=== PATIENT | female | born 1935 | race Caucasian/White ===

== ENCOUNTER 2018-03-03 19:27 | Emergency (ER) | payer OTHER ==
[~2018-03-03] VITALS: Ht 160 cm; Wt 84.8 kg
[2018-03-03] MEDS ORDERED: ZOCOR5 MG (20:00)
[2018-03-03] MEDS ORDERED: NOVOLIN N100 UNIT/1 (20:01)
[2018-03-03] MEDS ORDERED: SYNTHROID75 MCG (20:01)
[2018-03-03] MEDS ORDERED: AVAPRO300 MG (20:01)
[2018-03-03] MEDS ORDERED: NOVOLIN R100 UNIT/1 (20:01)
== END 2018-03-03 22:35 | disposition home or self-care (01) ==
LOC: ER 19:27
DX: J06.9 Acute upper respiratory infection, unspecified (principal); R06.02 Shortness of breath